=== PATIENT | male | born 1935 | race Caucasian/White ===

== ENCOUNTER 2016-10-10 00:58 | Inpatient (IN) | payer OTHER, MEDICAID ==
[~2016-10-10] VITALS: Ht 175.3 cm; Wt 59.0 kg
[2016-10-10 01:04] VITALS: BP 113/58
--- NOTE | 2016-10-10 01:11 | NUR ---
PT [facility] BLS. TAKEN TO BED 5
--- NOTE | 2016-10-10 01:15 | NUR ---
81 Y/O M BIBA [facility]M [facility] W/C/O R SHOULDER/CLAVICLE FRACTURE S/P FALL X YESTERDAY 10/09/16. EXTENSIVE MEDICAL HX. ON DOCUSATE, GABAPENTIN, MILK OF MAGNESIA, MULTIVITAMIN WITH MINERAL, PILOCARPINE HCL, PSYLIUM HUSK POWDER, RIVASTIGMINE PATCH, AND TYLENOL.
--- NOTE | 2016-10-10 01:25 | NUR ---
PT TAKEN TO RADIOLOGY
--- NOTE | 2016-10-10 02:10 | NUR ---
Dr. Costa evaluating patient at bedside.
[2016-10-10] MEDS ORDERED: MORPHINE SULFATE 2 MG/ML SYR IVP ONE (02:30)
[2016-10-10] MEDS ORDERED: NACL 0.9% 1,000 ML IV ONE (02:30)
[2016-10-10 02:54] LABS: BASOPHILS # (AUTO) 0.1 K/uL (0.00-0.22); BASOPHILS % (AUTO) 1.5 % (0.0-2.0); EOSINOPHILS # (AUTO) 0.1 K/uL (0-0.4); EOSINOPHILS % (AUTO) 1.7 % (0.0-4.0); HEMATOCRIT 37.8 % (36-52); HEMOGLOBIN 12.5 g/dL (12.0-18.0); LYMPHOCYTES # (AUTO) 1.1 K/uL (2.0-11.5); LYMPHOCYTES % (AUTO) 16.5 % (20.5-51.1); MEAN CORPUSCULAR HEMOGLOBIN 32 pg (27-31); MEAN CORPUSCULAR HGB CONC 33 g/dL (33-37); MEAN CORPUSCULAR VOLUME 96 fL (80-94); MONOCYTES # (AUTO) 0.6 K/uL (0.8-1.0); MONOCYTES % (AUTO) 8.7 % (1.7-9.3); NEUTROPHILS # (AUTO) 4.9 K/uL (1.8-7.7); NEUTROPHILS % (AUTO) 71.6 % (42.2-75.2); PLATELET COUNT (AUTO) 270 K/uL (140-450); RED BLOOD CELL COUNT(AUTO) 3.93 MIL/uL (4.20-6.10); RED CELL DISTRIBUTION WIDTH 13.2 % (11.6-13.7); WHITE BLOOD COUNT (AUTO) 6.8 K/uL (4.8-10.8)
[2016-10-10 03:02] LABS: CALCIUM 8.6 mg/dL (8.5-10.1); CARBON DIOXIDE 31.9 mmol/L (21-32); CHLORIDE 108 mmol/L (98-107); CREATININE 0.8 mg/dL (0.6-1.3); GLUCOSE 99 mg/dL (74-106); POTASSIUM 3.9 mmol/L (3.5-5.1); SODIUM SERUM 145 mmol/L (136-145); UREA NITROGEN, BLOOD 18 mg/dL (7-18)
[2016-10-10 03:08] LABS: ALANINE AMINOTRANSFERASE 18 U/L (12-78); ALBUMIN 3.1 g/dL (3.4-5.0); ALKALINE PHOSPHATASE 98 U/L (46-116); ASPARTATE AMINOTRANSFERASE 16 U/L (15-37); TOTAL BILIRUBIN 0.5 mg/dL (0.0-1.0); TOTAL PROTEIN, SERUM 6.4 g/dL (6.4-8.2)
[2016-10-10 03:15] LABS: INR 1.1 (0.8-1.2); PARTIAL THROMBOPLASTIN TIME 28.1 secs (22-35.6); PROTHROMBIN TIME 10.7 secs (10.8-13.4)
[2016-10-10] MEDS ORDERED: DOCU-67 PO (03:33)
[2016-10-10] MEDS ORDERED: MORPHINE SULFATE 4 MG/ML SYR IVP PRN (03:35)
[2016-10-10] MEDS ORDERED: LORazepam 2 MG/ML VIAL IVP PRN (03:35)
[2016-10-10] MEDS ORDERED: MORPHINE SULFATE 2 MG/ML SYR IVP PRN (03:35)
[2016-10-10] MEDS ORDERED: ONDANSETRON 4 MG/2 ML VIAL IVP PRN (03:35)
[2016-10-10] MEDS: DEXT 5% /NACL 0.9% 1,000 ML IV SCH ×2 (03:35→15:44)
[2016-10-10] MEDS ORDERED: GABA300C PO (03:37)
[2016-10-10] MEDS ORDERED: FERR325E14 PO (03:37)
[2016-10-10] MEDS ORDERED: MAGN400S60 PO (03:53)
[2016-10-10] MEDS ORDERED: MULT15LI1 PO (03:54)
[2016-10-10] MEDS ORDERED: [UNRECOGNIZED DRUG - CODE] OP (03:55)
[2016-10-10] MEDS ORDERED: PSYL1POW PO (03:57)
[2016-10-10] MEDS ORDERED: EXE9.5T TP (03:58)
[2016-10-10] MEDS ORDERED: ACET-2619 PO (04:00)
--- NOTE | 2016-10-10 04:19 | NUR ---
Patient will be admitted to care of DR ROSE. Admited to M/S. Will go to room 122B. Belongings list completed. Report to JYOTSNA PHILIP.
[2016-10-10 04:30] VITALS: BP 148/76
--- NOTE | 2016-10-10 04:30 | NUR ---
PATIENT ADMITTED TO UNIT FROM ED, PATIENT ARRIVED VIA DEVONTE TINEO ACCOMPANIED BY DAUGHTER. PATIENT IS AAOX1, MUMBLES WHEN TRIES TO TALK. PATIENT IS ON ROOM AIR, NO SOB OR SIGN OF DISTRESS. PT NON COMPLIANT, WITHDRAWS FROM TOUCH AND GETS AGGRESSIVE. APPLIED MITTENS PER PT' S DAUGHTER REQUEST. IV TO LFA PATENT AND INTACT. SKIN WITH MULTIPLE BRUISES TO RIGHT UPPER ARM, RIGHT FACE, RIGHT ELBOW. SCABS TO LEFT SIDE OF FACE AND LEFT KNEE, SACRAL REDNESS NOTED BLANCHABLE AND RED. ORIENTED PATIENT TO ROOM AND CALL LIGHT, DISCUSSED PLAN OF CARE WITH PATIENT , PATIENT UNABLE TO VERBALIZE UNDERSTANDING. NEEDS REINFORCEMENT. SAFETY MEASURES CHECKED, FALL PRECAUTIONS IN PLACE, BED ALARM ON. VITAL SIGNS STABLE. CALL LIGHT WITHIN REACH. WILL CONTINUE TO MONITOR.
--- NOTE | 2016-10-10 07:30 | NUR ---
RECEIVED PT ON BED, SLEEPING, AROUSABLE. CONFUSED. NO SOB NOTED. NO C/O PAIN AT THIS TIME. IV TO LT HAND PATENT AND INTACT. CHEST CLEAR. ABDOMEN SOFT, BOWEL SOUNDS PRESENT. NO EDEMA NOTED. WILL REPOSITION PT EVERY 2 HRS. NPO MAINTAINED. BED ON LOW POSITION. ALARM ON. WILL CONTINUE TO MONITOR.
--- NOTE | 2016-10-10 07:30 | NUR ---
ENDORSED PATIENT TO DAY RN AT BEDSIDE, PATIENT IN STABLE CONDITION
[2016-10-10 08:00] VITALS: BP 156/100
[2016-10-10] MEDS: DOCUSATE SODIUM 100 MG GELCAP PO SCH ×2 (09:00→21:57)
--- NOTE | 2016-10-10 09:45 | NUR ---
CALLED LESA ZIEGLER TO FOLLOW UP WITH THE CONSULT. NEW ORDERS GIVEN.
--- NOTE | 2016-10-10 09:47 | NUR ---
PATIENT HAS BEEN SCREENED AND CATEGORIZED MODERATE NUTRITION RISK. PATIENT WILL BE SEEN WITHIN 3-5 DAYS OF ADMISSION. 10/13/16 - 10/15/16 DOM MARTINS MBA, RD
--- NOTE | 2016-10-10 11:45 | NUR ---
PT SEEN BY LESA ZIEGLER. PT'S DAUGHTER SAMIR ABLE TO SPEAK WITH MD OVER THE PHONE.
[2016-10-10 16:00] VITALS: BP 111/62
--- NOTE | 2016-10-10 16:40 | NUR ---
P.T. NOTES SPOKE W/ MARE RN, PER NURSE, DR.M WILKINS NOT ORDERING P.T. EVAL AT THIS TIME, WILL CANCEL P.T. EVAL ORDER, ORTHO WANTS SHOULDER IMMOBILIZER BRACE (R)UE; REFERRED TO E.R. SUPPLIES OR MATERIALS MGMT, IF NONE, WILL REFER TO OPHTHALMIC TECHNOLOGIST; CHARGE NURSE AWARE.
--- NOTE | 2016-10-10 18:40 | NUR ---
SHOULDER IMMOBILIZER APPLIED TO RT SHOULDER.
--- NOTE | 2016-10-10 18:53 | NUR ---
PT RESTING. NO SOB NOTED. NO COMPLAINTS MADE. WILL ENDORSE TO NEXT SHIFT FOR CONTINUITY OF CARE.
--- NOTE | 2016-10-10 20:00 | NUR ---
RECEIVED AWAKE,ALERT,CONFUSED.AFEBRILE, NOT IN ACUTE DISTRESS. NO PAIN OR DISCOMFORT NOTED. WITH IV FLUIDS D5 NS INFUSING AT 100 ML/HR VIA LEFT FOREARM GAUGE 20 IV LINE. WITH RIGHT SHOULDER SLING IN PLACE. VS STABLE, WILL CONTINUE TO MONITOR. NEEDS ATTENDED.
--- NOTE | 2016-10-10 21:57 | NUR ---
DUE MEDICATION GIVEN.
[2016-10-11] VITALS: BP 144/60
--- NOTE | 2016-10-11 | NUR ---
AWAKE,NOT IN ANY KIND OF DISTRESS. NO PAIN OR DISCOMFORT NOTED. SIDE RAILS UP,CALL LIGHT WITHIN REACH. KEPT WARM AND COMFORTABLE. VS REMAIN STABLE.
[2016-10-11] MEDS: DEXT 5% /NACL 0.9% 1,000 ML IV SCH ×3 (02:22→11:52)
--- NOTE | 2016-10-11 04:00 | NUR ---
RESTING IN BED,NOT IN ANY KIND OF DISTRESS. NO PAIN OR DISCOMFORT. KEPT WARM AND COMFORTABLE. WILL CONTINUE TO MONITOR.
--- NOTE | 2016-10-11 07:03 | NUR ---
ENDORSED CARE TO SARAHI RN.
--- NOTE | 2016-10-11 07:04 | NUR ---
PT AWAKE AND RESPONSIVE, WITH PERIODS OF CONFUSION. BREATHING EVENLY AND UNLABORED, NO SIGNS OF ACUTE DISTRESS. SKIN IS WARM AND DRY. OFFLOAD TO PRESSURE AREAS. NOTED MULTIPLE BRUISES AND RIGHT ARM SLING. PT WITH RIGHT SHOULDER FRACTURE. KEPT IMMOBILIZED. PLACED IN A COMFORTABLE POSITION. NO SIGNS OF ANY BOWEL/BLADDER DISCOMFORT. NO SIGNS OF ANY PAIN OR DISCOMFORT AT THIS TIME, ALL NEEDS ATTENDED, SAFETY PRECAUTIONS MAINTAINED. CALL LIGHT WITHIN REACH.
[2016-10-11 07:32] LABS: BASOPHILS # (AUTO) 0.1 K/uL (0.00-0.22); BASOPHILS % (AUTO) 1.2 % (0.0-2.0); EOSINOPHILS # (AUTO) 0.1 K/uL (0-0.4); EOSINOPHILS % (AUTO) 1.5 % (0.0-4.0); HEMATOCRIT 35.9 % (36-52); HEMOGLOBIN 11.8 g/dL (12.0-18.0); LYMPHOCYTES % (AUTO) 15.5 % (20.5-51.1); MEAN CORPUSCULAR HEMOGLOBIN 32 pg (27-31); MEAN CORPUSCULAR HGB CONC 33 g/dL (33-37); MEAN CORPUSCULAR VOLUME 96 fL (80-94); MONOCYTES # (AUTO) 0.6 K/uL (0.8-1.0); MONOCYTES % (AUTO) 8.5 % (1.7-9.3); NEUTROPHILS # (AUTO) 4.9 K/uL (1.8-7.7); NEUTROPHILS % (AUTO) 73.3 % (42.2-75.2); PLATELET COUNT (AUTO) 255 K/uL (140-450); RED BLOOD CELL COUNT(AUTO) 3.73 MIL/uL (4.20-6.10); RED CELL DISTRIBUTION WIDTH 13.4 % (11.6-13.7); WHITE BLOOD COUNT (AUTO) 6.8 K/uL (4.8-10.8)
[2016-10-11 07:48] LABS: ANION GAP 10.3 (8-16); CALCIUM 8.2 mg/dL (8.5-10.1); CARBON DIOXIDE 30.4 mmol/L (21-32); CHLORIDE 107 mmol/L (98-107); CREATININE 0.7 mg/dL (0.6-1.3); GLUCOSE 92 mg/dL (74-106); POTASSIUM 3.7 mmol/L (3.5-5.1); SODIUM SERUM 144 mmol/L (136-145); UREA NITROGEN, BLOOD 10 mg/dL (7-18)
[2016-10-11 07:59] VITALS: BP 135/106
[2016-10-11] MEDS: DOCUSATE SODIUM 100 MG GELCAP PO SCH (08:47)
--- NOTE | 2016-10-11 12:44 | NUR ---
WAS SEEN BY DR. ROSE. Pita PINA D/C TO SNF ORDERED. NOTED AND CARRIED OUT. CHARGE NURSE AWARE.
--- NOTE | 2016-10-11 13:15 | NUR ---
SPOKE WITH GEMA FROM [facility], ETA WILL AT 1415 HRS. PT IS RETURNING TO ROOM 112-A AT [facility]. MEDICARE FORM AND FACE SHEET FAXED TO [facility].
--- NOTE | 2016-10-11 14:09 | NUR ---
PT AWAKE AND RESPONSIVE, NO SIGNS OF ACUTE DISTRESS. [facility]. REPORT GIVEN TO RN PENCILS WASHER PETEY. DAUGHTER AT BEDSIDE, EDUCATED ON CONTINUING PLAN OF CARE AT SNF, CONTINUE HOME MEDS ORDERED AND F/U WITH Ruth ZIEGLER. PT'S DAUGHTER VERBALIZED UNDERSTANDING. IV LINE AND WRIST BANDS REMOVED. MAINTAINED RIGHT ARM IMMOBILIZED WITH RIGHT ARM SLING. PT BELONGINGS WITH FAMILY, PICKED UP BY [facility] AND TRANSPORTED VIA GURNEY.
== END 2016-10-11 14:09 | DRG 563 ==
LOC: MED 00:58 → MTU 03:40
PROVIDERS: ADMIT Preventive Medicine Preventive Medicine/Occupational Environmental Medicine; ATTEND Preventive Medicine Preventive Medicine/Occupational Environmental Medicine
DX: S42.211A Unspecified displaced fracture of surgical neck of right humerus, initial encounter for closed fracture (principal); S70.01XA Contusion of right hip, initial encounter; S40.021A Contusion of right upper arm, initial encounter; R23.4 Changes in skin texture; M85.80 Other specified disorders of bone density and structure, unspecified site; M19.019 Primary osteoarthritis, unspecified shoulder; E04.1 Nontoxic single thyroid nodule; K56.41 Fecal impaction; R91.1 Solitary pulmonary nodule; D64.9 Anemia, unspecified; F03.90 Unspecified dementia, unspecified severity, without behavioral disturbance, psychotic disturbance, mood disturbance, and anxiety; X58.XXXA Exposure to other specified factors, initial encounter; S46.001S Unspecified injury of muscle(s) and tendon(s) of the rotator cuff of right shoulder, sequela; Z88.1 Allergy status to other antibiotic agents; Z79.899 Other long term (current) drug therapy; Y93.89 Activity, other specified; Y92.89 Other specified places as the place of occurrence of the external cause; Y99.8 Other external cause status
CPT/HCPCS: 36415; 70450; 71010; 72125; 72192; 73030; 80048; 80053; 84443; 85025; 85610; 85730; 87081; 96361; 96374; 99285; J2060; J2270; J7030; J7042; Q0092